=== PATIENT | male | born 1985 | race Caucasian/White ===

== ENCOUNTER 2025-01-02 06:39 | Day surgery (SDC) | payer OTHER, SELFPAY ==
[2025-01-02] VITALS (13 sets, daily range): BP systolic 125–164; BP diastolic 73–104; PULSE 70–90; RESP 12–16; TEMP 36.3–36.9; O2SAT 94–97; BMI 31.1
[2025-01-02] MEDS: LACTATED RINGERS 1000 ML 1,000 ML 100 ML IV (06:45)
--- NOTE | 2025-01-02 07:20 | W.PM.H&PU ---
History & Physical Update History & Physical Update H&P Reviewed and patient assessed: No changes noted
[2025-01-02] MEDS: SODIUM CHLORIDE 0.9 % (FLUSH) 10 ML SYRINGE IVF (07:24)
--- NOTE | 2025-01-02 08:50 | P.ORPRC_ITS ---
Procedure Note Date of procedure: 01/02/25 Procedure: PREOPERATIVE DIAGNOSIS: 1. Right knee medial meniscus tear, secondary POSTOPERATIVE DIAGNOSIS: 1. Right knee medial meniscus tear, secondary PROCEDURE: 1. Right knee arthroscopic partial medial meniscectomy SURGEON: Attila Bone M.D. HYPERBARIC WELDER DIVER: RCOCO Gan. Of note, an assistant professor of german was critical for this case to aid in patient positioning, knee manipulation, instrument exchange, and closure. ANESTHESIA: Spinal EBL: 2ml TOURNIQUET: 30 min at 250 torr COMPLICATIONS: None evident INDICATIONS: The patient is a pleasant 39yo male who has experienced right knee pain particularly with any twisting or turning. Physical exam was concerning for medial meniscus tear, this was confirmed on MRI. Additionally, attempted nonoperative management has been tried, and failed. Thus, surgery was recommended. FINDINGS: Complex tearing of the medial meniscus extending from the posterior horn to the midbody. A suture was identified in the medial meniscus midbody suspected from remote medial meniscus repair. 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 Most notable in the trochlear groove centrally. Also grade 2 broadly through the medial femoral condyle weight-bearing portion. Crystal deposits were seen throughout all articular cartilage surfaces as well as within/on top of the meniscus both medial and lateral compartments. Poor ACL quality with only of few fibers extending from the previous reconstruction site. PCL intact. No loose bodies evident. DESCRIPTION OF PROCEDURE: After a thorough discussion of risks, benefits, and alternatives, the patient was brought to the operating room and placed upon the operating table. Induction of anesthesia was undertaken as previously noted. 2g iv Ancef was administered within 1 hr of incision preoperatively. Appropriate time-out was performed identifying proper patient, site, and procedure. The right lower extremity was prepped and draped in the appropriate sterile fashion using ChloraPrep. The limb was exsanguinated and tourniquet inflated. Anterolateral and anteromedial portals were established with an 11 blade, and a diagnostic arthroscopy was performed. This identified the findings as noted above. Following the diagnostic arthroscopy, a partial medial menisectomy was performed with the combination of basket forceps and a motorized shaver. Following this, the meniscus was re-probed and found to be stable. Approximately 20-25% of the overall remaining meniscus required resection. At this stage, the shaver was reinserted into the suprapatellar pouch and all remaining meniscal debris was evacuated. Instruments were removed, excess fluid was drained, and closure performed with 4-0 Monocryl with Steri-Strips. Dressings were applied, the tourniquet deflated, and the patient was awoken from anesthesia and transferred to the PACU in stable condition. PLAN: 1. Weightbear as tolerated operative extremity. Crutch / walker ambulation assistance PRN. 2. Ice, acetominophen and/or Oxycodone for pain as needed. 3. Knee range of motion and quad sets/straight leg raise regularly 4. Follow up with PA visit in 1-2 weeks for a wound check and possibly to initiate physical therapy.
[2025-01-02] MEDS: ROPIVACAINE 0.5% 30 ML 150 MG INJECTION (08:52)
--- NOTE | 2025-01-02 09:01 | P.ANES_ITS ---
Anesthesia Charges Start Date/Time Anesthesia Start Date: 01/02/25 Anesthesia Start Time: 07:57 Stop Date/Time Anesthesia Stop Date: 01/02/25 Anesthesia Stop Time: 09:03 Coding CPT Codes CPT Codes: ANESTH KNEE JOINT SURGERY - 51613 ([id number]) P2 - PATIENT W/MILD SYST DISEASE, QZ - LACE TEARING SUPERVISOR SVC W/O TOWER SWITCH OPERATOR BY
--- NOTE | 2025-01-02 09:01 | W.ANESCHARGE ---
Anesthesia Charges Start Date/Time Anesthesia Start Date: 01/02/25 Anesthesia Start Time: 07:57 Stop Date/Time Anesthesia Stop Date: 01/02/25 Anesthesia Stop Time: 09:03 Coding CPT Codes CPT Codes: ANESTH KNEE JOINT SURGERY - 78326 ([id number]) P2 - PATIENT W/MILD SYST DISEASE, QZ - LABORATORY ENGINEER SVC W/O ARCHEOLOGIST BY
--- NOTE | 2025-01-02 09:31 | SUR.PHASEI ---
patient met discharge criteria per anesthesia
== END 2025-01-02 10:49 | disposition home or self-care (01) ==
LOC: OR 06:41
PROVIDERS: PCP Physician Assistant Medical; Visit Provider Orthopaedic Surgery Sports Medicine
PROC: (CPT 29870; principal; 2025-01-02 08:00)
DX: S83.241A Other tear of medial meniscus, current injury, right knee, initial encounter (principal)
CPT/HCPCS: 29881; 01400; J0690; J1100; J2250; J2405; J2704; J2795; J3010; J7120